=== PATIENT | male | born 1945 | race Caucasian/White ===

== ENCOUNTER → 2020-01-21 | Outpatient (CLI) | payer OTHER ==
[~2020-01-21] MED LIST: ALOG12.52 PO; ATOR10TA9 PO; CHOL10003 PO; FERR-46 PO; INSU100V13 SC; LISI-167 PO; METF1000 PO; TAMS-11 PO
[2020-01-21 12:05] LABS: BASOPHILS # (AUTO) 0.09 x10^3/uL (0-0.1); BASOPHILS % (AUTO) 1 % (0-1); EOSINOPHILS # (AUTO) 0.26 x10^3/uL (0-0.4); EOSINOPHILS % (AUTO) 4 % (1-7); LYMPHOCYTES # (AUTO) 2.43 x10^3/uL (1-3.4); LYMPHOCYTES % (AUTO) 33 % (22-44); MD NO; MEAN CORPUSCULAR HEMOGLOBIN 27.7 pg (27.5-34.5); MEAN CORPUSCULAR HGB CONC 31.8 g/dL (33.2-36.2); MEAN CORPUSCULAR VOLUME 87.1 fL (81-97); MEAN PLATELET VOLUME 9.5 fL (7.4-10.4); MONOCYTES # (AUTO) 0.71 x10^3/uL (0.2-0.8); MONOCYTES % (AUTO) 10 % (2-9); NEUTROPHILS # (AUTO) 3.81 x10^3/uL (1.8-6.8); NEUTROPHILS % (AUTO) 52 % (42-75); PLATELET COUNT 244 x10^3/uL (130-400); RED BLOOD COUNT 5.32 x10^6/uL (4.38-5.82); RED CELL DISTRIBUTION WIDTH 21.5 % (9.4-14.8)
[2020-01-21 12:15] LABS: ALANINE AMINOTRANSFERASE 31 U/L (12-78); ALBUMIN 3.7 g/dL (3.4-5.0); ANION GAP 9 mmol/L (5-15); CHLORIDE 109 mmol/L (98-107)
[2020-01-21 12:18] LABS: ALKALINE PHOSPHATASE 101 U/L (45-117); BILIRUBIN,TOTAL 0.7 mg/dL (0.2-1.0); TOTAL PROTEIN 7.2 g/dL (6.4-8.2)
== END | disposition home or self-care (01) ==
LOC: STAR 10:29
PROVIDERS: ATTEND Orthopaedic Surgery
DX: Z01.812 Encounter for preprocedural laboratory examination (principal); Z20.828 Contact with and (suspected) exposure to other viral communicable diseases; M25.511 Pain in right shoulder; I48.91 Unspecified atrial fibrillation; R94.31 Abnormal electrocardiogram [ECG] [EKG]
CPT/HCPCS: 36415; 80053; 85025; 87081; 87635; 93005

== ENCOUNTER 2020-01-25 07:35 | Inpatient (IN) | payer OTHER ==
[~2020-01-25] VITALS: Ht 177.8 cm; Wt 106.0 kg
[~2020-01-25 07:35] MED LIST changes: +FENTANYL PF 250 MCG/5ML ONE; +MIDAZOLAM 1 MG/ML, 2ML ONE
[2020-01-25] MEDS ORDERED: LACTATED RINGERS 1,000 ML IV SCH (08:02)
[2020-01-25] MEDS ORDERED: CHLORHEXIDINE 15 ML UDC MM ONE (08:30)
[2020-01-25] MEDS ORDERED: VANCOMYCIN PMX 1GM/200ML 200 ML IV ONE (08:30)
[2020-01-25] MEDS ORDERED: TRANEXAMIC ACID 100 MG/ML, 10ML ONE (08:31)
[2020-01-25] MEDS ORDERED: morphine SULFATE/PF 1 MG/ML, 10ML ONE (08:31)
[2020-01-25] MEDS ORDERED: SODIUM CHLORIDE 0.9% 50 ML ONE (08:31)
[2020-01-25] MEDS ORDERED: VANCOMYCIN 1,000 MG ONE (08:31)
[2020-01-25] MEDS ORDERED: KETOROLAC 60 MG/2 ML ONE (08:31)
[2020-01-25] MEDS ORDERED: CLINDAMYCIN 150 MG/ML, 6ML ONE (08:31)
[2020-01-25] MEDS ORDERED: METHYLENE BLUE 50 MG/10 ML AMP ONE (08:31)
[2020-01-25] MEDS ORDERED: ROPIvacaine/PF 0.5%, 20 ML ONE (08:31)
[2020-01-25] MEDS ORDERED: EPINEPHRINE 1 MG/ML, 1ML ONE (08:32)
[2020-01-25] MEDS ORDERED: NEOSPORIN OINT. PKT 1 PACKET ONE ×2 (08:32→10:59)
[2020-01-25] MEDS ORDERED: ROPIvacaine/PF 0.2%, 20 ML ONE (08:51)
[2020-01-25] MEDS ORDERED: GLYCOPYRROLATE 0.2MG/1ML, 5ML ONE (09:12)
[2020-01-25] MEDS ORDERED: ROCURONIUM 10 MG/ML,10ML ONE (09:12)
[2020-01-25] MEDS ORDERED: PROPOFOL 10 MG/ML, 20ML ONE (09:12)
[2020-01-25] MEDS ORDERED: PHENYLEPHRINE 10 MG/ML ONE (09:12)
[2020-01-25] MEDS ORDERED: NEOSTIGMINE 1 MG/ML, 10ML ONE (09:12)
[2020-01-25] MEDS ORDERED: LABETALOL 5MG/ML, 20ML IV PRN (09:30)
[2020-01-25] MEDS ORDERED: DIAZEPAM 5 MG/ML, 2ML IVPush PRN (09:30)
[2020-01-25] MEDS ORDERED: ONDANSETRON 2MG/ML, 2ML IVPush PRN (09:30)
[2020-01-25] MEDS ORDERED: PROMETHAZINE 25 MG/ML, 1ML IVPush PRN (09:30)
[2020-01-25] MEDS ORDERED: DIPHENHYDRAMINE 50 MG/ML, 1ML IVPush PRN (09:30)
[2020-01-25] MEDS ORDERED: HYDROmorphone 1 MG/ML, 1ML INJ IVPush PRN (09:30)
[2020-01-25] MEDS ORDERED: hydrALAzine 20 MG/ML, 1ML IV PRN (09:30)
[2020-01-25] MEDS ORDERED: MEPERIDINE/PF 25MG/0.5ML IVPush PRN (09:30)
[2020-01-25] MEDS ORDERED: SUGAMMADEX 200 MG/2 ML IVPush ONE (10:53)
[2020-01-25] MEDS ORDERED: FENTANYL PF 100 MCG/2ML ONE (11:26)
[2020-01-25] MEDS ORDERED: ACETAMINOPHEN 650 MG/20.3 ML UDC ONE (11:26)
[2020-01-25] MEDS ORDERED: DIAZEPAM 5 MG/ML, 2ML ONE (11:27)
[2020-01-25] MEDS ORDERED: OXYcodone 5 MG/5 ML ORAL.SOL UDC ONE ×2 (11:27→12:10)
[2020-01-25] MEDS: OXYcodone 5 MG/5 ML ORAL.SOL UDC PO PRN ×2 (11:30→12:12)
[2020-01-25] MEDS: FENTANYL PF 100 MCG/2ML IV PRN ×4 (11:57→12:13)
[2020-01-25] MEDS ORDERED: ACETAMINOPHEN 650 MG/20.3 ML UDC PO PRN (12:00)
[2020-01-25] MEDS ORDERED: HYDROmorphone 1 MG/ML, 1ML INJ ONE (12:15)
[2020-01-25] MEDS ORDERED: HYDROcodone/APAP 7.5-325MG/15ML UDC PO PRN (13:30)
[2020-01-25] MEDS ORDERED: ONDANSETRON 2MG/ML, 2ML IV PRN (13:30)
[2020-01-25 14:15] VITALS: BP 110/65
[2020-01-25] MEDS: KETOROLAC 30 MG/1 ML IV SCH ×2 (15:57→23:12)
[2020-01-25] MEDS: D5%-LACTATED RINGERS 1,000 ML IV SCH (15:59)
[2020-01-25] MEDS: CEFAZOLIN PMX 1GM/50ML 50 ML IVPB SCH (17:30)
[2020-01-25] MEDS: CLINDAMYCIN PMX 900MG/50ML 50 ML IVPB SCH (18:13)
[2020-01-25 19:06] VITALS: BP 109/66
[2020-01-25] MEDS: HYDROmorphone 2 MG/ML, 1ML IVPush PRN ×2 (22:47→23:12)
[2020-01-25 23:10] VITALS: BP 105/67
[2020-01-25 23:36] VITALS: BP 92/60
[2020-01-26] MEDS: OXYcodone 5 MG/5 ML ORAL.SOL UDC PO PRN ×2 (01:07→06:32)
[2020-01-26] MEDS: CEFAZOLIN PMX 1GM/50ML 50 ML IVPB SCH (01:08)
[2020-01-26] MEDS: CLINDAMYCIN PMX 900MG/50ML 50 ML IVPB SCH (01:55)
[2020-01-26] MEDS: HYDROmorphone 2 MG/ML, 1ML IVPush PRN (02:57)
[2020-01-26 03:15] VITALS: BP 107/66
[2020-01-26 08:00] VITALS: BP 123/72
[2020-01-26] MEDS: D5%-LACTATED RINGERS 1,000 ML IV SCH (08:09)
[2020-01-26] MEDS: KETOROLAC 30 MG/1 ML IV SCH (08:09)
== END 2020-01-26 10:07 | disposition home or self-care (01) | DRG 483 ==
LOC: ORIP 07:35 → EDSTATUS 10:00 → 4NE 13:08 → DCLOUNGE 01-26 09:55
PROVIDERS: ADMIT Orthopaedic Surgery; ATTEND Orthopaedic Surgery
PROC: 0RRJ00Z Replacement of Right Shoulder Joint with Reverse Ball and Socket Synthetic Substitute, Open Approach (ICD-10-PCS; principal; 2020-01-25 09:30)
DX: M12.811 Other specific arthropathies, not elsewhere classified, right shoulder (principal); M75.101 Unspecified rotator cuff tear or rupture of right shoulder, not specified as traumatic
CPT/HCPCS: J7121; S0077; 82962; G0378; J0171; J0690; J1170; J1885; J2250; J2274; J2704; J2710; J2795; J3010; J3360; J3370; Q9968; J2370; J7120

== ENCOUNTER 2020-01-29 20:07 | Emergency (ER) | payer OTHER ==
[~2020-01-29] VITALS: Ht 177.8 cm; Wt 108.3 kg
[~2020-01-29 20:07] MED LIST changes: -FENTANYL PF 250 MCG/5ML ONE; -MIDAZOLAM 1 MG/ML, 2ML ONE
--- NOTE | 2020-01-29 20:30 | NUR ---
IT 74 YO MALE CC OF R SHOULDER AND CHEST REDNESS THAT STARTED TODAY THAT EXTENDS TO MIDDLE OF CHEST AND DOWN R ARM TO BICEP. HAD R SHOULDER REPLACEMENT ON 01/[address] MOLINA AT [facility]. COMPLAINTS OF 8/10 PAIN AT SITE, UNSURE OF WHAT PAIN MEDS HE HAS AT HOME BUT DID TAKE "A COUPLE" DOSES TODAY. FOLLOW UP APPOITMENT SCHEDULED 02/08. PT PLEASANT AND RESTING COMFORTABLY ON GURNEY MAKING JOKES WITH STAFF.
[2020-01-29 20:31] VITALS: BP 134/86
[2020-01-29] MEDS ORDERED: DIPHENHYDRAMINE 25 MG CAPSULE PO ONE (21:00)
--- NOTE | 2020-01-29 21:10 | NUR ---
ORDER FOR BENADRYL. PT STATES HE NEEDS TO DRIVE HIMSELF HOME AND HAS NEVER TAKEN BENADRYL BEFORE. STATES HE WILL TAKE IT TOMORROW OVER THE COUNTER INSTEAD. PROVIDER UPDATED.
== END 2020-01-29 21:58 | disposition home or self-care (01) ==
LOC: ED 20:41
DX: L50.0 Allergic urticaria (principal); L24.9 Irritant contact dermatitis, unspecified cause; M25.511 Pain in right shoulder; R00.0 Tachycardia, unspecified; E11.9 Type 2 diabetes mellitus without complications; Z96.611 Presence of right artificial shoulder joint
CPT/HCPCS: 99282